=== PATIENT | male | born 1970 | race Caucasian/White ===

== ENCOUNTER 2016-12-09 10:18 | Emergency (ER) | payer SELFPAY ==
--- NOTE | 2016-12-09 10:37 | ER Document Report ---
Doctor's Note Notes: 12/09/16 10:37 Patient evaluated in pit, noted to be actively vomiting blood, history of alcohol abuse, pt immediately taken ot trauma 1 , no other evaluation performed
[2016-12-09] MEDS ORDERED: NORMAL SALINE 1000 ML 1,000 ML IV PRN (10:40)
[2016-12-09] MEDS ORDERED: PANTOPRAZOLE SODIUM 40 MG VIAL IV ONE (10:40)
[2016-12-09] MEDS ORDERED: ONDANSETRON HCL INJ/PF 4 MG/2 ML SDV IV ONE ×2 (10:41→15:53)
[2016-12-09] MEDS ORDERED: OCTREOTIDE ACETATE INJ/PF 100 MCG/1 ML SDV IV ONE (10:42)
[2016-12-09] MEDS ORDERED: ONDANSETRON HCL INJ/PF 4 MG/2 ML SDV ONE (10:43)
[2016-12-09] MEDS ORDERED: NORMAL SALINE 500 ML with OCTREOTIDE ACETATE 500 MCG IV PRN ×2 (10:45)
[2016-12-09] MEDS: NORMAL SALINE 250 ML IV PRN ×6 (10:48→16:43)
[2016-12-09 11:00] LABS: ABSOLUTE BASOPHILS # (AUTO) 0.1 10^3/uL (0.0-0.2); ABSOLUTE LYMPHOCYTES (AUTO) 2.1 10^3/uL (0.5-4.7); ABSOLUTE MONOCYTES (AUTO) 1.1 10^3/uL (0.1-1.4); ABSOLUTE NEUT (AUTO) 9.3 10^3/uL (1.7-8.2); BASOPHILS % (AUTO) 0.5 % (0-2); HEMATOCRIT 34.8 % (37.9-51.0); HEMOGLOBIN 11.8 g/dL (13.5-17.0); HGB HCT DIFFERENCE 0.6; MEAN CORPUSCULAR HEMOGLOBIN 31.3 pg (27.0-33.4); MEAN CORPUSCULAR HGB CONC 33.9 g/dL (32.0-36.0); MEAN CORPUSCULAR VOLUME 92 fl (80-97); MONOCYTES % (AUTO) 8.9 % (3-13); RED BLOOD COUNT 3.77 10^6/uL (4.35-5.55); RED CELL DISTRIBUTION WIDTH 14.4 % (11.5-14.0); SEGMENTED NEUTROPHILS % (AUTO) 73.6 % (42-78); WHITE BLOOD COUNT 12.6 10^3/uL (4.0-10.5)
[2016-12-09 11:02] LABS: PROTHROMBIN TIME 13.7 SEC (11.4-15.4)
[2016-12-09 11:03] LABS: PARTIAL THROMBOPLASTIN TIME 21.9 SEC (23.5-35.8)
[2016-12-09] MEDS ORDERED: METOCLOPRAMIDE HCL INJ/PF 10 MG/2 ML SDV IV ONE (11:09)
[2016-12-09] MEDS ORDERED: METOCLOPRAMIDE HCL INJ/PF 10 MG/2 ML SDV ONE (11:12)
[2016-12-09 11:19] LABS: ALANINE AMINOTRANSFERASE 77 U/L (21-72); ALBUMIN 4.2 g/dL (3.5-5.0); ALKALINE PHOSPHATASE 55 U/L (38-126); ANION GAP 14 (5-19); ASPARTATE AMINO TRANSFERASE 22 U/L (17-59); BILIRUBIN,DIRECT 0.5 mg/dL (0.0-0.4); BILIRUBIN,TOTAL 0.9 mg/dL (0.2-1.3); BLOOD UREA NITROGEN 48 mg/dL (7-20); CALCIUM 9.3 mg/dL (8.4-10.2); CARBON DIOXIDE 25 mmol/L (22-30); CHLORIDE 103 mmol/L (98-107); CREATININE RESULT 1.13 mg/dL (0.52-1.25); GLUCOSE 151 mg/dL (75-110); POTASSIUM 3.7 mmol/L (3.6-5.0); SODIUM 142.3 mmol/L (137-145); TOTAL PROTEIN 6.9 g/dL (6.3-8.2)
[2016-12-09 11:20] LABS: ALCOHOL < 10 mg/dL (NONE DETECTED)
[2016-12-09] MEDS ORDERED: LORAZEPAM INJ 2 MG/1 ML VIAL IV ONE (11:57)
--- NOTE | 2016-12-09 12:01 | RADIOLOGY REPORT (SQ) ---
EXAM DESCRIPTION: CHEST SINGLE VIEW COMPLETED DATE/TIME: 12/09/2016 11:51 am REASON FOR STUDY: hypoxia COMPARISON: None. EXAM PARAMETERS: NUMBER OF VIEWS: One view. TECHNIQUE: Single frontal radiographic view of the chest acquired. RADIATION DOSE: NA LIMITATIONS: None. FINDINGS: LUNGS AND PLEURA: No opacities, masses or pneumothorax. No pleural effusion. MEDIASTINUM AND HILAR STRUCTURES: No masses. Contour normal. HEART AND VASCULAR STRUCTURES: Heart upper limits of normal in size. Normal vasculature. BONES: No acute findings. HARDWARE: None in the chest. OTHER: No other significant finding. IMPRESSION: NO ACUTE RADIOGRAPHIC FINDING IN THE CHEST. TECHNICAL DOCUMENTATION: JOB ID: [id number]
[2016-12-09] MEDS ORDERED: NORMAL SALINE 1000 ML 1,000 ML IV ONE ×3 (12:07→15:54)
[2016-12-09] MEDS ORDERED: CEFTRIAXONE 1 GM/D5W RTU 50 ML IV ONE (13:51)
--- NOTE | 2016-12-09 15:31 | ER Document Report ---
ED General - General Chief Complaint: GI Bleeding Stated Complaint: VOMITING BLOOD Time Seen by Provider: 12/09/16 10:33 TRAVEL OUTSIDE OF THE [place] IN LAST 30 DAYS: No - HPI Patient complains to provider of: Vomiting blood bloody stools Notes: Patient has a history of chronic alcohol abuse coming in today after vomiting blood for 2 days and also having bloody stools. Patient states he is never been evaluated by physician. Patient states he normally drinks about 6-12 beers a day possibly sometimes along with liquor. Patient states he has not had a drink in the last 48 hours. Patient denies any trauma. Upon triage evaluation patient was actively vomiting bright red blood into the trash can. Patient was brought back to our trauma room T1 upon standing up from wheelchair patient has syncopal episode. Patient is tachycardic diaphoretic hypotensive at time was systolic blood pressure approximately 100 2 large bore IVs were established obtain blood samples. Patient denies any past medical history of allergies to medications patient only complaining of nausea at the time. - Related Data Allergies/Adverse Reactions: No Known Allergies Allergy (Unverified 12/09/16 10:26) Past Medical History - Social History Smoking Status: Never Smoker Chew tobacco use (# tins/day): No Frequency of alcohol use: Heavy Family History: Reviewed & Not Pertinent Patient has suicidal ideation: No Patient has homicidal ideation: No Renal/ Medical History: Denies: Hx Peritoneal Dialysis - Immunizations Hx Diphtheria, Pertussis, Tetanus Vaccination: Yes Review of Systems - Review of Systems Constitutional: No symptoms reported EENT: No symptoms reported Cardiovascular: No symptoms reported Respiratory: No symptoms reported Gastrointestinal: Blood in vomit, Rectal bleeding Genitourinary: No symptoms reported Male Genitourinary: No symptoms reported Musculoskeletal: No symptoms reported Skin: No symptoms reported Hematologic/Lymphatic: No symptoms reported Neurological/Psychological: No symptoms reported -: Yes All other systems reviewed and negative Physical Exam - Vital signs Vitals: Temp Pulse Resp BP Pulse Ox 97.9 F 145 H 18 165/103 H 100 12/09/16 10:20 12/09/16 10:20 12/09/16 10:20 12/09/16 10:20 12/09/16 10:20 Interpretation: Hypotensive, Tachycardic - General General appearance: Other - Appears pale and diaphoretic - HEENT Head: Normocephalic, Atraumatic Eyes: Normal Pupils: PERRL - Respiratory Respiratory status: No respiratory distress Chest status: Nontender Breath sounds: Normal Chest palpation: Normal - Cardiovascular Rhythm: Tachycardia Heart sounds: Normal auscultation Murmur: No - Abdominal Inspection: Normal Distension: No distension Bowel sounds: Normal Tenderness: Nontender Organomegaly: No organomegaly - Rectal Stool: Heme positive, Black Hemorrhoids: External Prostate: Normal - Back Back: Normal, Nontender - Extremities General upper extremity: Normal inspection, Nontender, Normal color, Normal ROM , Normal temperature General lower extremity: Normal inspection, Nontender, Normal color, Normal ROM , Normal temperature, Normal weight bearing. No: Matthew's sign - Neurological Neuro grossly intact: Yes Cognition: Normal Orientation: AAOx4 Eduardo Coma Scale Eye Opening: Spontaneous Dana Coma Scale Verbal: Oriented Eduardo Coma Scale Motor: Obeys Commands Eduardo Coma Scale Total: 15 Speech: Normal Motor strength normal: LUE, RUE, LLE, RLE Sensory: Normal - Psychological Associated symptoms: Normal affect, Normal mood - Skin Skin Temperature: Warm Skin Moisture: Dry Skin Color: Normal Course - Re-evaluation Re-evalutation: 12/09/16 15:28 Upon initial evaluation extremely concerned patient may be having a upper GI bleed due to varices has been undiagnosed. Patient was started on Protonix octreotide fluid resuscitation was began 2 L of normal saline. Patient's blood pressure improved and then continually increased to greater than 200 systolic. Multiple evaluation the patient mildly tremulous stating that he does not feel very well nausea improved at the Reglan. Patient was given 2 mg of Ativan which did improve the patient's vital signs and blood pressure. Concerned about possible alcohol withdrawals. Discussed with resident physician at [facility] said that the patient requesting a dose of Rocephin be given as well. Setting physician attending will be [place]. Patient remains tachycardic however states feeling much better. Blood pressure has improved. No more vomiting no bloody bowel movements hemoglobin stable patient was typed and screened initially ordered 1 unit of blood but held off from this as patient does have a stable hemoglobin. Multiple repeats have been ordered patient is currently waiting on a bed at [facility]. - Vital Signs Vital signs: Temp Pulse Resp BP Pulse Ox 97.9 F 145 H 13 145/99 H 98 12/09/16 10:20 12/09/16 10:20 12/09/16 12:46 12/09/16 12:46 12/09/16 12:46 - Laboratory Result Diagrams: 12/09/16 10:40 12/09/16 10:40 Laboratory results interpreted by me: 12/09/16 12/09/16 12/09/16 10:40 10:40 10:40 WBC 12.6 H RBC 3.77 L Hgb 11.8 L Hct 34.8 L RDW 14.4 H Absolute Neutrophils 9.3 H APTT BUN 48 H Glucose 151 H Lactic Acid Direct Bilirubin 0.5 H ALT 77 H Salicylates < 1.0 L Acetaminophen < 10 L Crossmatch See Detail 12/09/16 12/09/16 10:40 10:40 WBC RBC Hgb Hct RDW Absolute Neutrophils APTT 21.9 L BUN Glucose Lactic Acid 2.4 H Direct Bilirubin ALT Salicylates Acetaminophen Crossmatch Critical Care Note - Critical Care Note Total time excluding time spent on procedures (mins): 60 Comments: Multiple evaluations patient undergoing alcohol withdrawals with upper and lower GI bleeding. Discharge - Discharge Clinical Impression: Upper gastrointestinal hemorrhage, Lower gastrointestinal hemorrhage, Alcohol dependence with uncomplicated withdrawal Condition: Fair Disposition: CR[facility]ICAL ACCESS HOSPITAL
[2016-12-09] MEDS ORDERED: ONDANSETRON HCL INJ/PF 4 MG/2 ML SDV IV PRN (15:53)
[2016-12-09] MEDS ORDERED: LORAZEPAM INJ 2 MG/1 ML VIAL IV PRN (15:53)
[2016-12-09 15:57] LABS: HEMATOCRIT 28.4 % (37.9-51.0); HEMOGLOBIN 9.8 g/dL (13.5-17.0); MEAN CORPUSCULAR HEMOGLOBIN 31.7 pg (27.0-33.4); MEAN CORPUSCULAR HGB CONC 34.4 g/dL (32.0-36.0); MEAN CORPUSCULAR VOLUME 92 fl (80-97); RED BLOOD COUNT 3.08 10^6/uL (4.35-5.55); RED CELL DISTRIBUTION WIDTH 14.3 % (11.5-14.0); WHITE BLOOD COUNT 11.8 10^3/uL (4.0-10.5)
[2016-12-09 16:34] LABS: APPEARANCE,URINE CLEAR; BILIRUBIN,URINE NEGATIVE (NEGATIVE); GLUCOSE, URINE 150 mg/dL (NEGATIVE); KETONES,URINE TRACE mg/dL (NEGATIVE); LEUKOCYTE ESTERASE,URINE NEGATIVE (NEGATIVE); NITRITE,URINE NEGATIVE (NEGATIVE); PROTEIN,URINE NEGATIVE (NEGATIVE); UROBILINOGEN,URINE NEGATIVE mg/dL (<2.0)
--- NOTE | 2016-12-09 17:05 | EKG REPORT ---
SEVERITY:- ABNORMAL ECG - SINUS TACHYCARDIA LVH WITH SECONDARY REPOLARIZATION ABNORMALITY BORDERLINE PROLONGED QT INTERVAL : Confirmed by: Jordon Sawyer MD 09-Dec-2016 17:04:14
[2016-12-09] MEDS ORDERED: NORMAL SALINE 1000 ML 1,000 ML with POTASSIUM CHLORIDE 20 MEQ, MAGNESIUM SULFATE 8 MEQ,... IV SCH ×5 (18:00)
--- NOTE | 2016-12-09 19:18 | ER Document Report ---
Doctor's Note Notes: 12/09/16 19:16 Note: This is a 46-year-old man with a history of alcohol abuse that presented to the emergency room with acute GI bleeding. Patient was placed on octreotide drip. He was getting Ativan as needed for alcohol withdrawal. He was getting IV fluids. The patient has remained alert and the plan was awaiting for transfer to [facility]. I was alerted that the patient eloped from the emergency room. Staff did find him in the front of the hospital and the patient had told the nurse that he was no longer to willing to wait to go to [facility], he was going to go to [facility] himself. He was not willing to come back in the emergency room. In summary, this is a patient with alcohol abuse who presented with GI bleed who is awaiting transfer to [facility] and had been in the emergency room several hours for lack in a bed available bed at [facility] he left against advice and eloped from the emergency room with the plans on going [facility]. To [facility] emergency room.
[2016-12-09 19:30] VITALS: BP 139/90
[2016-12-09] MEDS ORDERED: PANTOPRAZOLE SODIUM 40 MG VIAL IV SCH (22:00)
== END 2016-12-09 19:10 | disposition short-term general hospital (02) ==
LOC: ER 10:18
DX: K92.2 Gastrointestinal hemorrhage, unspecified (principal); F10.230 Alcohol dependence with withdrawal, uncomplicated; R55 Syncope and collapse; R00.0 Tachycardia, unspecified; R61 Generalized hyperhidrosis; I95.9 Hypotension, unspecified
CPT/HCPCS: 96376; 99291; 96375; 96365; 96366; 96367; 86900; 86901; 36415; 86850; 80307 ×3; 83690; 85025; 85027; 85610; 85730; 82272; 80053; 81001; 84484; 83605; 71010; 93005; 93010; J3475; J2765; J2060; J2354; J3480; S0164; J3411; J2405; J7030; J0696; J3490